=== PATIENT | female | born 1995 | race Hispanic/Latino ===

== ENCOUNTER 2018-06-27 00:11 | Emergency (ER) | payer SELFPAY ==
[2018-06-27 00:28] VITALS: RESP 17
[2018-06-27] MEDS ORDERED: Morphine 4 mg/ml ISec IVP STA (00:55)
[2018-06-27] MEDS ORDERED: Sodium Chloride 0.9% 1,000 ML IV STA (00:55)
--- NOTE | 2018-06-27 00:58 | ED PDOC ---
Arrival/HPI - General Chief Complaint: Abdominal Pain Time Seen by Provider: 06/27/18 00:25 Historian: Patient - History of Present Illness Narrative History of Present Illness (Text): 06/27/18 00:51 22 year old female, with no significant past medical history, presents to the emergency department with lower abdominal pain, for 2 days. Patient informs that pain has become severe today, so she came to the hospital. Patient states she has associated nausea, vomiting, diarrhea, dizziness, and cold sweats. Patient informs her last period at the beginning of this month, but can't recall exact date. Patient states she has used Tylenol, Icy-hot, and warm towels, with no relief. Patient denies any headache, chest pain, shortness of breath, cough, hematochezia, back pain, neck pain, or any other complaint. Time/Duration: 24 hours (progressively worse today), < week (2 days) Symptom Onset: Gradual Symptom Course: Worsening Past Medical History - Provider Review Nursing Documentation Reviewed: Yes - Infectious Disease Hx of Infectious Diseases: None - Cardiac Hx Cardiac Disorders: No - Psychiatric Hx Substance Use: No Family/Social History - Physician Review Nursing Documentation Reviewed: Yes Family/Social History: No Known Family HX Smoking Status: Never Smoked Hx Alcohol Use: No Hx Substance Use: No Allergies/Home Meds Allergies/Adverse Reactions: Allergies ibuprofen Allergy (Verified 06/27/18 00:22) ANAPHYLAXIS naproxen [From Aleve] Allergy (Verified 06/27/18 00:22) ANAPHYLAXIS Review of Systems - Physician Review All systems were reviewed & negative as marked: Yes - Review of Systems Constitutional: Night Sweats Respiratory: absent: SOB, Cough Cardiovascular: absent: Chest Pain Gastrointestinal: Diarrhea, Nausea, Vomiting. absent: Hematochezia Neurological: Dizziness. absent: Headache Physical Exam Vital Signs Reviewed: Yes Vital Signs Temp Pulse Resp BP Pulse Ox 06/27/18 00:27 98.2 F 91 H 17 134/81 98 Temperature: Afebrile Blood Pressure: Normal Pulse: Regular Respiratory Rate: Normal Appearance: Positive for: Well-Appearing, Non-Toxic, Comfortable Pain Distress: None Mental Status: Positive for: Alert and Oriented X 3 - Systems Exam Head: Present: Atraumatic, Normocephalic Pupils: Present: PERRL Extroacular Muscles: Present: EOMI Conjunctiva: Present: Normal Mouth: Present: Moist Mucous Membranes Neck: Present: Normal Range of Motion Respiratory/Chest: Present: Clear to Auscultation, Good Air Exchange. No: Respiratory Distress, Accessory Muscle Use Cardiovascular: Present: Regular Rate and Rhythm, Normal S1, S2. No: Murmurs Abdomen: No: Tenderness, Distention, Peritoneal Signs Back: Present: Normal Inspection Upper Extremity: Present: Normal Inspection. No: Cyanosis, Edema Lower Extremity: Present: Normal Inspection. No: Edema Neurological: Present: Speech Normal Skin: Present: Warm, Dry, Normal Color. No: Rashes Psychiatric: Present: Alert, Oriented x 3, Normal Insight, Normal Concentration Medical Decision Making ED Course and Treatment: 06/27/18 01:02 Impression: 22 year old female presents with lower abdominal pain. Plan: -- CT ABD & Pelvis -- Labs -- Reglan -- Morphine -- Urinalysis -- Reassess and disposition Prior Visits: Notes and results from previous visits were reviewed. Progress Notes: - RAD Interpretation Narrative RAD Interpretations (Text): 06/27/18 04:03 CT SCAN OF THE ABDOMEN AND PELVIS WITH CONTRAST. CLINICAL HISTORY: Abdominal pain. TECHNIQUE: Multiple axial and coronal CT images were obtained through the abdomen and pelvis after administration of intravenous contrast material. COMMENTS: Fluid filled stomach. The liver is of uniform attenuation without mass or defect. There is no intra or extrahepatic biliary ductal dilatation. The spleen is normal. The gallbladder is within normal limits. The pancreas is of normal contour and attenuation characteristics. There is no evidence of adrenal mass. Both kidneys demonstrate prompt and equal nephrograms. The kidneys are normal in size, shape and configuration. There is no evidence of renal or ureteral mass. No renal or ureteral calculi are identified. There is no hydroureter or hydronephrosis. No evidence for appendicitis. There is no bowel wall thickening. No evidence for small or large bowel obstruction. Uncomplicated colonic diverticulosis. There is no evidence of abdominal ascites or lymphadenopathy. There is no evidence of intrinsic or extrinsic bladder mass. There is small amount of free pelvic fluid. Images of the lung bases show no evidence of pleural or parenchymal mass. There are no pleural effusions. The bony structures are free of lytic or blastic lesions. IMPRESSION: Mild gastroparesis. Mild amount of free pelvic fluid, nonspecific. No evidence of acute abdominal or pelvic pathology. Lofter: Radiologist - Scribe Statement The provider has reviewed the documentation as recorded by the Shelton Sutton Provider Scribe Attestation: All medical record entries made by the Shelton were at my direction and personally dictated by me. I have reviewed the chart and agree that the record accurately reflects my personal performance of the history, physical exam, medical decision making, and the department course for this patient. I have also personally directed, reviewed, and agree with the discharge instructions and disposition. Disposition/Present on Arrival - Present on Arrival Any Indicators Present on Arrival: No History of DVT/PE: No History of Uncontrolled Diabetes: No Urinary Catheter: No History of Decub. Ulcer: No History Surgical Site Infection Following: None - Disposition Have Diagnosis and Disposition been Completed?: Yes Diagnosis: Gastroparesis Disposition: HOME/ ROUTINE Disposition Time: 05:06 Patient Plan: Discharge Condition: SERIOUS Discharge Instructions (ExitCare): Gastroparesis (Delayed Gastric Emptying) (DC) Prescriptions: Ondansetron ODT [Zofran ODT] 4 mg PO PRN PRN #6 odt PRN Reason: Nausea/Vomiting Referrals: Jesus Banuelos MD [Staff Provider] - Follow up with primary Rita Loving MD [Medical Doctor] - [place] up [place] [facility] [place] - Follow up with primary Forms: [employer] (Scottish)
[2018-06-27 01:04] LABS: URINE APPEARANCE SL CLOUDY (CLEAR); URINE COLOR YELLOW (YELLOW)
[2018-06-27 01:08] LABS: URINE BILIRUBIN NEGATIVE (NEGATIVE); URINE BLOOD NEGATIVE (NEGATIVE); URINE GLUCOSE (UA) NEGATIVE (NEGATIVE); URINE LEUKOCYTE ESTERASE NEGATIVE Leu/uL (NEGATIVE); URINE PROTEIN TRACE mg/dL (<30 mg/dL); URINE UROBILINOGEN 0.2 E.U./dL (<1 E.U./dL)
[2018-06-27 01:09] LABS: URINE BACTERIA MOD (NEG); URINE RBC 0 - 2 /hpf (0-2)
[2018-06-27 01:22] LABS: BASO # 0.03 K/mm3 (0.0-2.0); BASO % 0.4 % (0.0-3.0); EOS # 0.2 (0.0-0.7); EOS % 1.9 % (1.5-5.0); GRAN # 4.37 (1.4-6.5); GRAN % 55.6 % (50.0-68.0); HEMOGLOBIN 12.2 g/dL (12.0-16.0); LYMPH # 2.7 (1.2-3.4); LYMPH % 34.5 % (22.0-35.0); MEAN CELL VOLUME 92.5 fl (80.0-105.0); MEAN CORPUSCULAR HEMOGLOBIN 31.7 pg (25.0-35.0); MEAN CORPUSCULAR HGB CONC 34.3 g/dl (31.0-37.0); MEAN PLATELET VOLUME 10.5 fl (7.0-11.0); MONO # 0.6 (0.1-0.6); MONO % 7.6 % (1.0-6.0); RBC 3.85 10^6/uL (3.5-6.1); WHITE BLOOD COUNT 7.9 10^3/uL (4.5-11.0)
[2018-06-27 01:32] LABS: ALB/GLOB RATIO 1.3 (1.1-1.8); ALBUMIN 3.8 g/dL (3.0-4.8); ALT/SGPT 30 U/L (7-56); AST/SGOT 24 U/L (14-36); BLOOD UREA NITROGEN 17 mg/dL (7-21); CALCIUM 8.7 mg/dL (8.4-10.5); GFR NON-AFRICAN AMERICAN > 60; LIPASE 64 U/L (23-300)
[2018-06-27] MEDS ORDERED: Iohexol 350 MG/100 ML VIAL ONE (01:55)
[2018-06-27 05:24] VITALS: BP 133/68; PULSE 88; TEMP 98.3; O2SAT 98
--- NOTE | 2018-06-27 10:34 | CT ---
Date of service: 06/27/2018 PROCEDURE: CT Abdomen and Pelvis with contrast HISTORY: abdominal pain COMPARISON: None. TECHNIQUE: Contrast dose: 100 cc of Omni 350 Radiation dose: Total exam DLP = 897.51 mGy-cm. This CT exam was performed using one or more of the following dose reduction techniques: Automated exposure control, adjustment of the mA and/or kV according to patient size, and/or use of iterative reconstruction technique. FINDINGS: LOWER THORAX: The stomach is filled with fluid and mildly distended. LIVER: Unremarkable. No gross lesion or ductal dilatation. GALLBLADDER AND BILE DUCTS: Unremarkable. PANCREAS: Unremarkable. No gross lesion or ductal dilatation. SPLEEN: Unremarkable. ADRENALS: Unremarkable. No mass. KIDNEYS AND URETERS: Unremarkable. No hydronephrosis. No solid mass. VASCULATURE: Unremarkable. No aortic aneurysm. No aortic atherosclerotic calcification or mural plaque present. BOWEL: Unremarkable. No obstruction. No gross mural thickening. APPENDIX: Normal appendix. PERITONEUM: There is a small amount of free fluid in the pelvis LYMPH NODES: Unremarkable. No enlarged lymph nodes. BLADDER: Unremarkable. REPRODUCTIVE: Unremarkable. BONES: No acute fracture. OTHER FINDINGS: The report concurs with the preliminary [facility] report IMPRESSION: No acute intra-abdominal findings
== END 2018-06-27 05:29 | disposition home or self-care (01) ==
LOC: ED 00:11
DX: K31.84 Gastroparesis (principal)
CPT/HCPCS: 74177; 80053; 81001; 83690; 84702; 85025; 87086; 96374; 96375; 99284; J2270; J2765; J7030; Q9967

== ENCOUNTER 2018-10-08 23:43 | Emergency (ER) | payer SELFPAY ==
[2018-10-08 23:57] VITALS: RESP 18
--- NOTE | 2018-10-09 00:28 | ED PDOC ---
Arrival/HPI - General Chief Complaint: Abdominal Pain Time Seen by Provider: 10/09/18 00:00 Historian: Patient - History of Present Illness Narrative History of Present Illness (Text): 10/09/18 00:26 Artemio Hagen is a 22 year old female, with no significant past medical history, who presents to the Emergency department complaining of abdominal pain. Patient states she has been experiencing intermittent abdominal pain for the past 2 weeks with some diarrhea. Patient denies any fever, chills, chest pain, shortness of breath, urinary symptoms, back pain, neck pain, headache, dizziness, or any other complaints. Symptom Onset: Gradual Symptom Course: Unchanged Activities at Onset: Light Context: Home Past Medical History - Provider Review Nursing Documentation Reviewed: Yes - Infectious Disease Hx of Infectious Diseases: None - Reproductive Currently : No - Cardiac Hx Cardiac Disorders: No - Psychiatric Hx Substance Use: No Family/Social History - Physician Review Nursing Documentation Reviewed: Yes Family/Social History: Unknown Family HX Smoking Status: Never Smoked Hx Alcohol Use: No Hx Substance Use: No Allergies/Home Meds Allergies/Adverse Reactions: Allergies ibuprofen Allergy (Verified 06/27/18 00:22) ANAPHYLAXIS metoclopramide [From Reglan] Allergy (Verified 10/08/18 23:59) ITCHING naproxen [From Aleve] Allergy (Verified 06/27/18 00:22) ANAPHYLAXIS Review of Systems - Physician Review All systems were reviewed & negative as marked: Yes - Review of Systems Constitutional: Normal. absent: Fevers Eyes: Normal ENT: Normal Respiratory: Normal. absent: SOB, Cough Cardiovascular: Normal. absent: Chest Pain Gastrointestinal: Abdominal Pain, Diarrhea. absent: Vomiting Genitourinary Female: Normal. absent: Dysuria, Frequency, Hematuria, Urine Output Changes Musculoskeletal: Normal. absent: Back Pain, Neck Pain Skin: Normal. absent: Rash Neurological: Normal. absent: Headache, Dizziness Endocrine: Normal Hemo/Lymphatic: Normal Psychiatric: Normal Physical Exam Vital Signs Reviewed: Yes Vital Signs Temp Pulse Resp BP Pulse Ox 10/08/18 23:56 98.0 F 84 18 106/58 L 98 Temperature: Afebrile Blood Pressure: Normal Pulse: Regular Respiratory Rate: Normal Appearance: Positive for: Well-Appearing, Non-Toxic, Comfortable Pain Distress: None Mental Status: Positive for: Alert and Oriented X 3 - Systems Exam Head: Present: Atraumatic, Normocephalic Pupils: Present: PERRL Extroacular Muscles: Present: EOMI Conjunctiva: Present: Normal Mouth: Present: Moist Mucous Membranes Neck: Present: Normal Range of Motion Respiratory/Chest: Present: Clear to Auscultation, Good Air Exchange. No: Respiratory Distress, Accessory Muscle Use Cardiovascular: Present: Regular Rate and Rhythm, Normal S1, S2. No: Murmurs Abdomen: Present: Tenderness (mild mid/left sided), Normal Bowel Sounds. No: Distention, Peritoneal Signs, Rebound, Guarding, McBurney's Point Tender, Rovsing's Sign Present, Hernias Back: Present: Normal Inspection Upper Extremity: Present: Normal Inspection. No: Cyanosis, Edema Lower Extremity: Present: Normal Inspection. No: Edema Neurological: Present: GCS=15, CN II-XII Intact, Speech Normal, Motor Func Grossly Intact, Normal Sensory Function Skin: Present: Warm, Dry, Normal Color. No: Rashes Psychiatric: Present: Alert, Oriented x 3, Normal Insight, Normal Concentration Medical Decision Making ED Course and Treatment: 10/09/18 00:26 Impression: 22 year old female complaining of mid/left sided abdominal pain and diarrhea Plan: -- CT Abdomen and Pelvis with IV contrast -- Labs, lipase -- Urinalysis -- IV fluids -- Morphine -- Reassess and disposition Prior Visits: Notes and results from previous visits were reviewed. Progress Notes: 10/09/18 03:00 CT Abdomen and Pelvis: Colonic diverticulosis. Mild apparent thickening of the sigmoid colon. Mild amount of free pelvic fluid. Moderate amount of fecal residue is noted in the large bowels. Moderate amount of fecal residue is noted in the terminal ileum. The liver is of uniform attenuation without mass or defect. There is no intra or extrahepatic biliary ductal dilatation. The spleen is normal. The gallbladder is within normal limits. The pancreas is of normal contour and attenuation characteristics. There is no evidence of adrenal mass. Both kidneys demonstrate prompt and equal nephrograms. The kidneys are normal in size, shape and configuration. There is no evidence of renal or ureteral mass. No renal or ureteral calculi are identified. There is no hydroureter or hydronephrosis. No evidence for appendicitis. There is no bowel wall thickening. No evidence for small or large bowel obstruction. There is no evidence of intrinsic or extrinsic bladder mass. Images of the lung bases show no evidence of pleural or parenchymal mass. There are no pleural effusions. The bony structures are free of lytic or blastic lesions. IMPRESSION: Colonic diverticulosis. Mild apparent thickening of the sigmoid colon. Underdistention, spasm versus mild colitis. Mild amount of free pelvic fluid. Moderate amount of fecal residue is noted in the large bowels. Moderate amount of fecal residue is noted in the terminal ileum. Electronically signed on Oct 09, 2018 2:54:43 AM EST by: Dorcas Mckeon M.D., Certified by ABR, MSK, Neuroradiology - Scribe Statement The provider has reviewed the documentation as recorded by the Scribe Charity Crowe Provider Scribe Attestation: All medical record entries made by the Scribe were at my direction and personally dictated by me. I have reviewed the chart and agree that the record accurately reflects my personal performance of the history, physical exam, medical decision making, and the department course for this patient. I have also personally directed, reviewed, and agree with the discharge instructions and disposition. Disposition/Present on Arrival - Present on Arrival Any Indicators Present on Arrival: No History of DVT/PE: No History of Uncontrolled Diabetes: No Urinary Catheter: No History of Decub. Ulcer: No History Surgical Site Infection Following: None - Disposition Have Diagnosis and Disposition been Completed?: Yes Diagnosis: Gastroenteritis Disposition: HOME/ ROUTINE Disposition Time: 03:44 Patient Plan: Discharge Condition: GOOD Discharge Instructions (ExitCare): Gastroenteritis (ED) Additional Instructions: Drink plenty of liquids/take meds as prescribed/follow up at [facility] this week Prescriptions: Phenobarb/Hyoscy/Atropine/Scop [ Tablet] 16.2 mg PO Q6 PRN #12 tablet PRN Reason: Dyspepsia Referrals: [facility] [Outside] - Follow up with primary Rita Loving MD [Medical Doctor] - Follow up with primary [facility] [Outside] - Follow up with primary Forms: [employer] ([place]an)
[2018-10-09] MEDS ORDERED: Sodium Chloride 0.9% 1,000 ML IV STA (00:29)
[2018-10-09] MEDS ORDERED: Morphine 2 mg/ml ISec IVP STA ×2 (00:29→02:07)
[2018-10-09 01:19] LABS: HEMOGLOBIN 12.9 g/dL (12.0-16.0); MEAN CELL VOLUME 91.3 fl (80.0-105.0); MEAN CORPUSCULAR HEMOGLOBIN 31.3 pg (25.0-35.0); MEAN CORPUSCULAR HGB CONC 34.3 g/dl (31.0-37.0); MEAN PLATELET VOLUME 10.8 fl (7.0-11.0); RBC 4.12 10^6/uL (3.5-6.1); RED CELL DISTRIBUTION WIDTH 13.3 % (11.5-14.5); WHITE BLOOD COUNT 8.1 10^3/uL (4.5-11.0)
[2018-10-09 01:20] LABS: URINE BILIRUBIN NEGATIVE (NEGATIVE); URINE BLOOD NEGATIVE (NEGATIVE); URINE GLUCOSE (UA) NEGATIVE (NEGATIVE); URINE LEUKOCYTE ESTERASE NEGATIVE Leu/uL (NEGATIVE); URINE PROTEIN NEGATIVE mg/dL (<30 mg/dL); URINE UROBILINOGEN 0.2 E.U./dL (<1 E.U./dL)
[2018-10-09 01:23] LABS: ALB/GLOB RATIO 1.4 (1.1-1.8); ALBUMIN 4.4 g/dL (3.0-4.8); ALT/SGPT 27 U/L (7-56); AST/SGOT 35 U/L (14-36); BLOOD UREA NITROGEN 14 mg/dL (7-21); CALCIUM 9.7 mg/dL (8.4-10.5); GFR NON-AFRICAN AMERICAN > 60; LIPASE 69 U/L (23-300)
[2018-10-09 01:25] LABS: URINE APPEARANCE CLEAR (CLEAR); URINE COLOR YELLOW (YELLOW)
[2018-10-09] MEDS ORDERED: Iohexol 350 MG/100 ML VIAL ONE (01:44)
[2018-10-09 03:59] VITALS: BP 129/76; PULSE 79; TEMP 98.1; O2SAT 98
--- NOTE | 2018-10-09 09:36 | CT ---
Date of service: 10/09/2018 PROCEDURE: CT Abdomen and Pelvis with contrast HISTORY: left lower abdominal pain COMPARISON: None. TECHNIQUE: Contrast dose: Radiation dose: Total exam DLP = 625.22 mGy-cm. This CT exam was performed using one or more of the following dose reduction techniques: Automated exposure control, adjustment of the mA and/or kV according to patient size, and/or use of iterative reconstruction technique. FINDINGS: LOWER THORAX: Unremarkable. LIVER: Unremarkable. No gross lesion or ductal dilatation. GALLBLADDER AND BILE DUCTS: Unremarkable. PANCREAS: Unremarkable. No gross lesion or ductal dilatation. SPLEEN: Unremarkable. ADRENALS: Unremarkable. No mass. KIDNEYS AND URETERS: Unremarkable. No hydronephrosis. No solid mass. VASCULATURE: Unremarkable. No aortic aneurysm. No aortic atherosclerotic calcification or mural plaque present. BOWEL: Unremarkable. No obstruction. No gross mural thickening. APPENDIX: Normal appendix. PERITONEUM: Unremarkable. No free fluid. No free air. LYMPH NODES: Unremarkable. No enlarged lymph nodes. BLADDER: Unremarkable. REPRODUCTIVE: Unremarkable. BONES: No acute fracture. OTHER FINDINGS: The report concurs with the preliminary [facility] report IMPRESSION: Unremarkable contrast enhanced CT of the abdomen and pelvis.
== END 2018-10-09 03:58 | disposition home or self-care (01) ==
LOC: ED 23:43
DX: K52.9 Noninfective gastroenteritis and colitis, unspecified (principal)
CPT/HCPCS: 74177; 80053; 81003; 81025; 83690; 85027; 96374; 96376; 99284; J2270; J7030; Q9967

== ENCOUNTER 2018-10-25 02:40 | Emergency (ER) | payer SELFPAY ==
--- NOTE | 2018-10-25 03:00 | ED PDOC ---
Arrival/HPI - General Chief Complaint: Abdominal Pain Time Seen by Provider: 10/25/18 02:54 Historian: Patient - History of Present Illness Narrative History of Present Illness (Text): 10/25/18 02:59 Artemio Hagen is a 22 year old female, with no significant past medical history, who presents to the Emergency department complaining of abdominal pain. Patient states she has been experiencing intermittent lower abdominal pain for the past week with urinary frequency. Patient was seen in the Emergency department on 10/08/2017, was treated for gastroenteritis, and discharged home. Patient denies any fever, chills, chest pain, shortness of breath, back pain, neck pain, headache, dizziness, or any other complaints. Symptom Onset: Gradual Symptom Course: Unchanged Activities at Onset: Light Context: Home Past Medical History - Provider Review Nursing Documentation Reviewed: Yes - Infectious Disease Hx of Infectious Diseases: None - Cardiac Hx Cardiac Disorders: No - Psychiatric Hx Substance Use: No Family/Social History - Physician Review Nursing Documentation Reviewed: Yes Family/Social History: Unknown Family HX Smoking Status: Never Smoked Hx Alcohol Use: No Hx Substance Use: No Allergies/Home Meds Allergies/Adverse Reactions: Allergies ibuprofen Allergy (Verified 06/27/18 00:22) ANAPHYLAXIS metoclopramide [From Reglan] Allergy (Verified 10/08/18 23:59) ITCHING naproxen [From Aleve] Allergy (Verified 06/27/18 00:22) ANAPHYLAXIS Review of Systems - Physician Review All systems were reviewed & negative as marked: Yes - Review of Systems Constitutional: Normal. absent: Fevers Eyes: Normal ENT: Normal Respiratory: Normal. absent: SOB, Cough Cardiovascular: Normal. absent: Chest Pain Gastrointestinal: Abdominal Pain Genitourinary Female: Frequency Musculoskeletal: Normal. absent: Back Pain, Neck Pain Skin: Normal. absent: Rash Neurological: Normal. absent: Headache, Dizziness Endocrine: Normal Hemo/Lymphatic: Normal Psychiatric: Normal Physical Exam Vital Signs Reviewed: Yes Temperature: Afebrile Blood Pressure: Normal Pulse: Regular Respiratory Rate: Normal Appearance: Positive for: Well-Appearing, Non-Toxic, Comfortable Pain Distress: None Mental Status: Positive for: Alert and Oriented X 3 - Systems Exam Head: Present: Atraumatic, Normocephalic Pupils: Present: PERRL Extroacular Muscles: Present: EOMI Conjunctiva: Present: Normal Mouth: Present: Moist Mucous Membranes Neck: Present: Normal Range of Motion Respiratory/Chest: Present: Clear to Auscultation, Good Air Exchange. No: Respiratory Distress, Accessory Muscle Use Cardiovascular: Present: Regular Rate and Rhythm, Normal S1, S2. No: Murmurs Abdomen: Present: Tenderness (LLQ tenderness). No: Distention, Peritoneal Signs Back: Present: Normal Inspection Upper Extremity: Present: Normal Inspection. No: Cyanosis, Edema Lower Extremity: Present: Normal Inspection. No: Edema Neurological: Present: GCS=15, CN II-XII Intact, Speech Normal Skin: Present: Warm, Dry, Normal Color. No: Rashes Psychiatric: Present: Alert, Oriented x 3, Normal Insight, Normal Concentration Medical Decision Making ED Course and Treatment: 10/25/18 02:59 Impression: 23 year old female complaining of lower abdominal pain and some urinary frequency. Plan: -- Labs, lipase -- Urinalysis -- Reassess and disposition Prior Visits: Notes and results from previous visits were reviewed. Progress Notes: 10/25/18 05:30 On re-evaluation, patient feels better and is in no acute distress. I have di scussed the results and plan with the patient, who expresses understanding. Patient in agreement with plan to be discharged home. Patient is stable for discharge. Patient was instructed to follow up with physician or return if symptoms worsen or new concerning symptoms arise. Re-evaluation Time: 05:30 Reassessment Condition: Re-examined, Improved - Scribe Statement The provider has reviewed the documentation as recorded by the Shelton Crowe Provider Scribe Attestation: All medical record entries made by the Shelton were at my direction and personally dictated by me. I have reviewed the chart and agree that the record accurately reflects my personal performance of the history, physical exam, medical decision making, and the department course for this patient. I have also personally directed, reviewed, and agree with the discharge instructions and disposition. Disposition/Present on Arrival - Present on Arrival Any Indicators Present on Arrival: No History of DVT/PE: No History of Uncontrolled Diabetes: No Urinary Catheter: No History of Decub. Ulcer: No History Surgical Site Infection Following: None - Disposition Have Diagnosis and Disposition been Completed?: Yes Diagnosis: Abdominal pain Disposition: HOME/ ROUTINE Disposition Time: 05:30 Condition: IMPROVED Discharge Instructions (ExitCare): Acute Abdomen (Belly Pain) Additional Instructions: follow up with dr loving as soon as possible Referrals: Rita Loving MD [Medical Doctor] - Follow up with primary Forms: [employer] (Faroese)
[2018-10-25 03:31] LABS: BASO # 0.04 K/mm3 (0.0-2.0); BASO % 0.5 % (0.0-3.0); EOS # 0.1 (0.0-0.7); EOS % 1.5 % (1.5-5.0); LYMPH # 2.6 (1.2-3.4); LYMPH % 32.1 % (22.0-35.0); MEAN CELL VOLUME 92.8 fl (80.0-105.0); MEAN CORPUSCULAR HEMOGLOBIN 30.8 pg (25.0-35.0); MEAN CORPUSCULAR HGB CONC 33.2 g/dl (31.0-37.0); MEAN PLATELET VOLUME 10.5 fl (7.0-11.0); MONO # 0.6 (0.1-0.6); MONO % 7.8 % (1.0-6.0); RBC 3.89 10^6/uL (3.5-6.1); RED CELL DISTRIBUTION WIDTH 13.8 % (11.5-14.5); WHITE BLOOD COUNT 8.1 10^3/uL (4.5-11.0)
[2018-10-25 03:58] LABS: URINE APPEARANCE CLEAR (CLEAR); URINE BILIRUBIN NEGATIVE (NEGATIVE); URINE BLOOD NEGATIVE (NEGATIVE); URINE COLOR YELLOW (YELLOW); URINE GLUCOSE (UA) NEGATIVE (NEGATIVE); URINE LEUKOCYTE ESTERASE NEGATIVE Leu/uL (NEGATIVE); URINE PROTEIN NEGATIVE mg/dL (<30 mg/dL); URINE UROBILINOGEN 0.2 E.U./dL (<1 E.U./dL)
[2018-10-25 05:11] LABS: ALB/GLOB RATIO 1.3 (1.1-1.8); ALBUMIN 3.8 g/dL (3.0-4.8); ALT/SGPT 35 U/L (7-56); AST/SGOT 23 U/L (14-36); BLOOD UREA NITROGEN 13 mg/dL (7-21); CALCIUM 8.8 mg/dL (8.4-10.5); GFR NON-AFRICAN AMERICAN > 60; LIPASE 54 U/L (23-300)
[2018-10-25] MEDS ORDERED: Morphine 2 mg/ml ISec IVP STA (05:20)
[2018-10-25 05:36] VITALS: BP 125/82; PULSE 82; RESP 17; TEMP 98.2; O2SAT 98
== END 2018-10-25 05:36 | disposition home or self-care (01) ==
LOC: ED 02:40
DX: R10.30 Lower abdominal pain, unspecified (principal)
CPT/HCPCS: 80053; 81003; 81025; 83690; 85025; 96374; 99283; J2270

== ENCOUNTER 2018-11-03 01:11 | Observation (INO) | payer SELFPAY ==
[2018-11-03 01:18] VITALS: BMI 26.4
[2018-11-03 01:24] VITALS: RESP 18
[2018-11-03] MEDS ORDERED: Sodium Chloride 0.9% 1,000 ML IV SCH (02:00)
[2018-11-03] MEDS ORDERED: Iodixanol 320 MG/ML 100 ML BOTTLE IV ONE (02:02)
--- NOTE | 2018-11-03 02:05 | ED PDOC ---
Arrival/HPI - General Chief Complaint: Upper Extremity Problem/Injury Time Seen by Provider: 11/03/18 01:16 Historian: Patient - History of Present Illness Narrative History of Present Illness (Text): 11/03/18 01:55 23 year old female, with no significant past medical history, presents to the emergency department with right side weakness and pain, since 12:00pm today. This is the last time well. Patient states she was in school when pain began. Patient informs of burning pain to the right side of her back. Patient also informs of pain from her neck to her elbow on her right arm. Patient states she has never had this pain before. Patient denies any fevers, chills, headache, dizziness, chest pain, shortness of breath, cough, abdominal pain, nausea, vomiting, diarrhea, or any other complaint. Time/Duration: Other (14 hours) Symptom Onset: Gradual Symptom Course: Unchanged Quality: Burning Activities at Onset: Light Context: School Past Medical History - Provider Review Nursing Documentation Reviewed: Yes - Infectious Disease Hx of Infectious Diseases: None - Cardiac Hx Cardiac Disorders: No - Psychiatric Hx Substance Use: No Family/Social History - Physician Review Nursing Documentation Reviewed: Yes Family/Social History: No Known Family HX Smoking Status: Never Smoked Hx Alcohol Use: No Hx Substance Use: No Allergies/Home Meds Allergies/Adverse Reactions: Allergies gabapentin Allergy (Verified 11/03/18 01:21) ANAPHYLAXIS ibuprofen Allergy (Verified 11/03/18 01:21) ANAPHYLAXIS metoclopramide [From Reglan] Allergy (Verified 11/03/18 01:21) ITCHING naproxen [From Aleve] Allergy (Verified 11/03/18 01:21) ANAPHYLAXIS Home Medications: Home Meds Medication Instructions Recorded Confirmed No Known Home Med 11/03/18 11/03/18 Review of Systems - Physician Review All systems were reviewed & negative as marked: Yes - Review of Systems Respiratory: absent: SOB Neurological: absent: Dizziness Physical Exam - Physical Exam Narrative Physical Exam (Text): 11/03/18 02:05 Constitutional: No acute distress. Head: Normocephalic. Atraumatic. Eyes: PERRL. ENT: Moist mucous membranes. Neck: Supple. Cardiovascular: Regular rate. Chest: No tenderness. Respiratory: Clear to auscultation bilaterally. GI: Soft. Nontender. Nondistended. Back: No CVA tenderness. Musculoskeletal: No tenderness or swelling of extremities. Skin: No rash. Neurologic: Alert. Sensation to light touch subjectively decreased in right leg and right arm. Motor 4+/5 right leg and right arm. Vital Signs Reviewed: Yes Vital Signs Temp Pulse Resp BP Pulse Ox 11/03/18 01:22 97.8 F 82 18 108/70 97 Temperature: Afebrile Blood Pressure: Normal Pulse: Regular Respiratory Rate: Normal Appearance: Positive for: Well-Appearing, Non-Toxic, Comfortable Pain Distress: None Mental Status: Positive for: Alert and Oriented X 3 Medical Decision Making ED Course and Treatment: 11/03/18 02:08 Impression: 23 year old female presents with right sided numbness and pain Plan: -- CT Head -- CTA Head/neck -- EKG -- CMP, A1C, Lipid, Trop -- CBC, Platelets -- Code Stroke Protocol -- Reassess and disposition Prior Visits: Notes and results from previous visits were reviewed. Progress Notes: 11/03/18 01:54 Code stroke activated 11/03/18 02:54 CT HEAD W/O (CODE STROKE) CT SCAN OF THE BRAIN WITHOUT IV CONTRAST CLINICAL INDICATION: Stroke. TECHNIQUE: Axial images of the brain obtained without IV contrast administration. Normal size of the ventricles and extra-axial spaces for the patient's age. Normal white matter tracts of the supratentorial brain. Normal basal ganglia and thalami. Normal brainstem. Normal cerebellum. There is no demonstrated extra-axial, intraparenchymal, or intraventricular hemorrhage. There are no findings of an acute ischemic infarction. Normal calvarium. There is no demonstrated fracture. Normal soft tissue structures. Normal visualized paranasal sinuses. IMPRESSION: Normal unenhanced CT scan of the brain. 11/03/18 02:55 Chest X-ray reviewed by me, shows: No acute disease. 11/03/18 03:04 CT angiography of the head. Indication: Right-sided numbness/weakness. Technique: Axial CT angiographic images. Reformatted coronal and sagittal images. Normal bilateral petrous carotid arteries. Normal right cavernous carotid artery with a normal supraclinoid bifurcation. Normal left cavernous carotid artery with a normal supraclinoid bifurcation. Normal right A1 segments of the anterior cerebral artery. Normal left A1 segments of the anterior cerebral artery. Normal intact anterior communicating artery (ACOM). Normal bilateral A2 segments of the anterior cerebral arteries. Normal right M1 and M2 segments of the middle cerebral arteries, with a normal M1 bifurcation. Normal left M1 and M2 segments of the middle cerebral arteries, with a normal M1 bifurcation. Normal right posterior communicating artery (PCOM). Normal left posterior communicating artery (PCOM). Normal bilateral vertebral arteries. Normal basilar artery with a normal basilar bifurcation. The visualized bilateral superior cerebellar (SCA) arteries are normal. Normal bilateral P1, P2 and visualized P3 segments of the posterior cerebral arteries. There is no demonstrated aneurysm of the [place]. There is no major vessel occlusion or hemodynamically significant stenosis. There is no demonstrated abnormality of the visualized brain. IMPRESSION: Normal CTA of the head. CT angiography of the neck. Technique: Axial CT angiographic images. Reformatted coronal and sagittal images. Findings: RIGHT CAROTID ARTERIES: Normal right common carotid artery (CCA). Normal right common carotid bulb. Normal origin of the right internal carotid (ICA) artery without a hemodynamically significant stenosis. Normal visualized cervical portion of the right internal carotid artery. Normal origin of the right external carotid artery (ECA). LEFT CAROTID ARTERIES: Normal left common carotid artery (CCA). Normal left common carotid bulb. Normal origin of the left internal carotid (ICA) artery without a hemodynamically significant stenosis. Normal visualized cervical portion of the left internal carotid artery. Normal origin of the left external carotid artery (ECA). VERTEBRAL ARTERIES: Normal antegrade flow within the bilateral vertebral artery without a hemodynamically significant stenosis. IMPRESSION: Normal bilateral cervical carotid and vertebral arteries. - RAD Interpretation Radiology Orders: 11/03/18 01:53 CTA HEAD/NECK CODE STROKE [CT] Stat HEAD W/O (CODE STROKE) [CT] Stat CHEST PORTABLE [RAD] Stat NIHSS Scale ([place]) Time Performed: 01:16 - How Severe is the Stoke Baseline Level of Consciousness: 0=Alert LOC to Questions: 0=Both comments correct LOC to commands: 0=Obeys both correctly Best Gaze: 0=Normal Visual: 0=No visual loss Facial: 0=Normal Motor Arm - Left: 0=No drift Motor Arm - Right: 1=Drift noted before 10 sec Motor Leg - Left: 0=No drift Motor Leg - Right: 1=Drift before 5 sec Limb Ataxia: 0=Absent Sensory: 1=Mild to moderate loss Best Language: 0=No aphasia Dysarthia: 0=Normal articulation Extinction & Inattention (Neglect): 0=Normal, no object Score: 3 Risk Level: Minor Stroke Risk rTPA Inclusion/Exclusion - Refusal of Treatment Patient Refused Treatment: No - Inclusion Criteria for Altepase Patient is 18 years or Older: Yes The Clinical Diagnosis of Ischemic Stroke That is Causing a Potentially Disabling Neurological Deficit: Yes Time of Onset is Well Established to be Less Than 270 Minute Before Treatment Would Begin: No Risk/Benefit Discussed With Patient/Family Member Present: Yes - Scribe Statement The provider has reviewed the documentation as recorded by the Shaniaibahmet Sutton Provider Scribe Attestation: All medical record entries made by the Scribe were at my direction and personally dictated by me. I have reviewed the chart and agree that the record accurately reflects my personal performance of the history, physical exam, medical decision making, and the department course for this patient. I have also personally directed, reviewed, and agree with the discharge instructions and disposition. Disposition/Present on Arrival - Present on Arrival Any Indicators Present on Arrival: No History of DVT/PE: No History of Uncontrolled Diabetes: No Urinary Catheter: No History of Decub. Ulcer: No History Surgical Site Infection Following: None - Disposition Have Diagnosis and Disposition been Completed?: Yes Diagnosis: Hemiparesthesia Disposition: HOSPITALIZED Disposition Time: 02:54 Patient Plan: Admission, Telemetry Condition: FAIR Forms: [employer] (Frisian)
[2018-11-03 02:46] LABS: BASO # 0.03 K/mm3 (0.0-2.0); BASO % 0.5 % (0.0-3.0); EOS # 0.1 (0.0-0.7); EOS % 2.1 % (1.5-5.0); HEMOGLOBIN 11.4 g/dL (12.0-16.0); LYMPH # 2.5 (1.2-3.4); LYMPH % 37.7 % (22.0-35.0); MEAN CELL VOLUME 93.8 fl (80.0-105.0); MEAN PLATELET VOLUME 10.6 fl (7.0-11.0); MONO # 0.5 (0.1-0.6); MONO % 7.4 % (1.0-6.0); RBC 3.68 10^6/uL (3.5-6.1); RED CELL DISTRIBUTION WIDTH 13.6 % (11.5-14.5); WHITE BLOOD COUNT 6.5 10^3/uL (4.5-11.0)
[2018-11-03 02:50] LABS: INR 1.07; PARTIAL THROMBOPLASTIN TIME 34.4 Seconds (26.9-38.3); PROTHROMBIN TIME 11.9 SECONDS (9.4-12.5)
[2018-11-03 03:02] LABS: ALB/GLOB RATIO 1.4 (1.1-1.8); ALBUMIN 3.5 g/dL (3.0-4.8); ALT/SGPT 18 U/L (7-56); AST/SGOT 21 U/L (14-36); BLOOD UREA NITROGEN 17 mg/dL (7-21); GFR NON-AFRICAN AMERICAN > 60; HDL CHOLESTEROL 38 mg/dL (29-60)
[2018-11-03 03:05] LABS: LDL CHOLESTEROL 68 mg/dL (0-129)
[2018-11-03 03:07] LABS: TROPONIN I < 0.01 ng/mL
--- NOTE | 2018-11-03 03:21 | CP.PCM.HP ---
<Mario Hay - Last Filed: 11/03/18 04:32> History of Present Illness - History of Present Illness History of Present Illness: Mario Hay, PGY1 Medicine H&P for Dr. Zimmerman cc: "right sided weakness" Patient is a 23 year old female, with no significant past medical history, who presents to the emergency department with right side weakness that started at 12pm while she was in school. Patient was a code stroke in the ED. Medical team evaluated patient in the ED. Patient said that she still has some weakness since arriving to the ED. She has not had an episode like this in the past. She denies any medical history and does not take any medication. No prior history of stroke or seizure. She did not have any tongue biting or urinary/bowel incontinence during the incident. She is currently offering no complaints besides right upper and lower extremity weakness. She denies cp, sob, n/v/d, bowel/bladder changes, headache, fever, chills, lightheadedness, dizziness. A full 12 point ROS was conducted and unremarkable except as stated above. PMD: Dr. Urias PMHx:denies PSHx: denies Meds: none Allergies: gabapentin, ibuprofen/naproxen, reglan SocialHx: smokes a 2-3 cigarettes a day x2 years. Denies EtOH use. Denies illicit drug use. FamHx: non-contributory Present on Admission - Present on Admission Any Indicators Present on Admission: No Review of Systems - Review of Systems All systems: reviewed and no additional remarkable complaints except (as per HPI) Past Patient History - Infectious Disease Hx of Infectious Diseases: None - Past Social History Smoking Status: Never Smoked - CARDIAC Hx Cardiac Disorders: No - PSYCHIATRIC Hx Substance Use: No Meds Allergies/Adverse Reactions: Allergies Allergy/AdvReac Type Severity Reaction Status Date / Time gabapentin Allergy ANAPHYLAXIS Verified 11/03/18 01:21 ibuprofen Allergy ANAPHYLAXIS Verified 11/03/18 01:21 metoclopramide [From Reglan] Allergy ITCHING Verified 11/03/18 01:21 naproxen [From Aleve] Allergy ANAPHYLAXIS Verified 11/03/18 01:21 Physical Exam - Constitutional Appears: No Acute Distress - Head Exam Head Exam: ATRAUMATIC, NORMAL INSPECTION, NORMOCEPHALIC - Eye Exam Eye Exam: EOMI, Normal appearance, PERRL Pupil Exam: NORMAL ACCOMODATION - ENT Exam ENT Exam: Mucous Membranes Moist - Neck Exam Neck exam: Positive for: Normal Inspection. Negative for: Tenderness, Thyromegaly Additional comments: No bruit. - Respiratory Exam Respiratory Exam: Clear to Auscultation Bilateral, NORMAL BREATHING PATTERN. absent: Accessory Muscle Use, Chest Wall Tenderness, Rales, Rhonchi, Wheezes, Stridor - Cardiovascular Exam Cardiovascular Exam: +S1, +S2 - GI/Abdominal Exam GI & Abdominal Exam: Normal Bowel Sounds, Soft. absent: Tenderness - Extremities Exam Extremities exam: Positive for: normal inspection, pedal pulses present. Negative for: tenderness - Back Exam Back exam: NORMAL INSPECTION - Neurological Exam Neurological exam: Alert, CN II-XII Intact, Oriented x3 Additional comments: 5/5 motor strength in all extremities. Sensation is in tact to all upper/lower extremities. No evidence of facial droop; sensation to face intact and normal. - Psychiatric Exam Psychiatric exam: Normal Affect, Normal Mood - Skin Skin Exam: Dry, Intact, Normal Color, Warm Results - Vital Signs Recent Vital Signs: Last Vital Signs Temp 97.8 F 11/03/18 01:22 Pulse 82 11/03/18 01:22 Resp 18 11/03/18 01:22 BP 108/70 11/03/18 01:22 Pulse Ox 97 11/03/18 01:22 - Labs Result Diagrams: 11/03/18 02:30 11/03/18 02:30 Labs: Laboratory Results - last 24 hr 11/03/18 11/03/18 11/03/18 01:55 02:30 02:30 WBC 6.5 RBC 3.68 Hgb 11.4 L Hct 34.5 L MCV 93.8 MCH 31.0 MCHC 33.0 RDW 13.6 Plt Count 220 MPV 10.6 Neut % (Auto) 52.3 Lymph % (Auto) 37.7 H Cloud % (Auto) 7.4 H Eos % (Auto) 2.1 Baso % (Auto) 0.5 Lymph # (Auto) 2.5 Cloud # (Auto) 0.5 Eos # (Auto) 0.1 Baso # (Auto) 0.03 Absolute Neuts (auto) 3.42 PT 11.9 INR 1.07 APTT 34.4 Sodium Potassium Chloride Carbon Dioxide Anion Gap BUN Creatinine Est GFR ( Amer) Est GFR (Non-Af Amer) POC Glucose (mg/dL) 123 H Random Glucose Calcium Total Bilirubin AST ALT Alkaline Phosphatase Troponin I Total Protein Albumin Globulin Albumin/Globulin Ratio Triglycerides Cholesterol LDL Cholesterol Direct HDL Cholesterol BBK History Checked 11/03/18 11/03/18 02:30 02:30 WBC RBC Hgb Hct MCV MCH MCHC RDW Plt Count MPV Neut % (Auto) Lymph % (Auto) Cloud % (Auto) Eos % (Auto) Baso % (Auto) Lymph # (Auto) Cloud # (Auto) Eos # (Auto) Baso # (Auto) Absolute Neuts (auto) PT INR APTT Sodium 137 Potassium 3.7 Chloride 106 Carbon Dioxide 27 Anion Gap 8 L BUN 17 Creatinine 0.7 Est GFR ( Amer) > 60 Est GFR (Non-Af Amer) > 60 POC Glucose (mg/dL) Random Glucose 106 Calcium 9.0 Total Bilirubin 0.3 AST 21 ALT 18 Alkaline Phosphatase 57 Troponin I < 0.01 Total Protein 6.0 Albumin 3.5 Globulin 2.5 Albumin/Globulin Ratio 1.4 Triglycerides 81 Cholesterol 127 L LDL Cholesterol Direct 68 HDL Cholesterol 38 BBK History Checked No verified bt Assessment & Plan - Assessment and Plan (Free Text) Assessment: Patient is a 23 year old female, with no significant past medical history, who presents to the emergency department with right side weakness that started at 12pm while she was in school. Patient was a code stroke in the ED. Patient will be admitted for Stroke/TIA vs Conversion Disorder. Plan: Stroke/TIA vs Conversion Disorder - Given patient's age, exam, imaging results, and overall presentation consider underlying Conversion Disorder - ASA 81mg PO daily - Plavix as per neuro recs - Lipitor 20mg PO daily - NIHSS 0 - Neuro is on consult (Dr. Ricardo) - Urine drug screen - Hgb A1c - Lipid Panel - TSH - Vitamin B12 - Passed nursing swallow screen - Regular diet - IVF NS @ 100 cc/hr; mildly dehydrated - neurochecks q4 - CT Head: no acute findings - CT Angio Head/Neck: no acute findings - CXR: no consolidation or infiltrates DVT ppx: scd Diet: Regular Dispo: Monitor patient on telemetry. Further recs from neuro. Case was discussed and reviewed with Attending Physician, Dr. Zimmerman. <Beckie Zimmerman - Last Filed: 11/03/18 19:22> Results - Vital Signs Recent Vital Signs: Last Vital Signs Temp 97.5 F L 11/03/18 04:20 Pulse 83 11/03/18 04:20 Resp 18 11/03/18 04:20 BP 109/68 11/03/18 04:20 Pulse Ox 98 11/03/18 04:20 - Labs Result Diagrams: 11/03/18 02:30 11/03/18 02:30 Labs: Laboratory Results - last 24 hr 11/03/18 11/03/18 11/03/18 01:55 02:30 02:30 WBC 6.5 RBC 3.68 Hgb 11.4 L Hct 34.5 L MCV 93.8 MCH 31.0 MCHC 33.0 RDW 13.6 Plt Count 220 MPV 10.6 Neut % (Auto) 52.3 Lymph % (Auto) 37.7 H Cloud % (Auto) 7.4 H Eos % (Auto) 2.1 Baso % (Auto) 0.5 Lymph # (Auto) 2.5 Cloud # (Auto) 0.5 Eos # (Auto) 0.1 Baso # (Auto) 0.03 Absolute Neuts (auto) 3.42 PT 11.9 INR 1.07 APTT 34.4 Sodium Potassium Chloride Carbon Dioxide Anion Gap BUN Creatinine Est GFR ( Amer) Est GFR (Non-Af Amer) POC Glucose (mg/dL) 123 H Random Glucose Hemoglobin A1c Calcium Total Bilirubin AST ALT Alkaline Phosphatase Troponin I Total Protein Albumin Globulin Albumin/Globulin Ratio Triglycerides Cholesterol LDL Cholesterol Direct HDL Cholesterol Vitamin B12 TSH 3rd Generation Blood Type Blood Type Confirm Antibody Screen BBK History Checked 11/03/18 11/03/18 11/03/18 02:30 02:30 02:30 WBC RBC Hgb Hct MCV MCH MCHC RDW Plt Count MPV Neut % (Auto) Lymph % (Auto) Cloud % (Auto) Eos % (Auto) Baso % (Auto) Lymph # (Auto) Cloud # (Auto) Eos # (Auto) Baso # (Auto) Absolute Neuts (auto) PT INR APTT Sodium 137 Potassium 3.7 Chloride 106 Carbon Dioxide 27 Anion Gap 8 L BUN 17 Creatinine 0.7 Est GFR ( Amer) > 60 Est GFR (Non-Af Amer) > 60 POC Glucose (mg/dL) Random Glucose 106 Hemoglobin A1c 5.3 Calcium 9.0 Total Bilirubin 0.3 AST 21 ALT 18 Alkaline Phosphatase 57 Troponin I < 0.01 Total Protein 6.0 Albumin 3.5 Globulin 2.5 Albumin/Globulin Ratio 1.4 Triglycerides 81 Cholesterol 127 L LDL Cholesterol Direct 68 HDL Cholesterol 38 Vitamin B12 TSH 3rd Generation Blood Type O POSITIVE Blood Type Confirm Antibody Screen Negative BBK History Checked No verified bt 11/03/18 11/03/18 11/03/18 02:30 02:30 02:55 WBC RBC Hgb Hct MCV MCH MCHC RDW Plt Count MPV Neut % (Auto) Lymph % (Auto) Cloud % (Auto) Eos % (Auto) Baso % (Auto) Lymph # (Auto) Cloud # (Auto) Eos # (Auto) Baso # (Auto) Absolute Neuts (auto) PT INR APTT Sodium Potassium Chloride Carbon Dioxide Anion Gap BUN Creatinine Est GFR ( Amer) Est GFR (Non-Af Amer) POC Glucose (mg/dL) Random Glucose Hemoglobin A1c Calcium Total Bilirubin AST ALT Alkaline Phosphatase Troponin I Total Protein Albumin Globulin Albumin/Globulin Ratio Triglycerides Cholesterol LDL Cholesterol Direct HDL Cholesterol Vitamin B12 396 TSH 3rd Generation 2.21 Blood Type Blood Type Confirm O POSITIVE Antibody Screen BBK History Checked Attending/Attestation - Attestation I have personally seen and examined this patient.: Yes I have fully participated in the care of the patient.: Yes I have reviewed all pertinent clinical information: Yes Notes (Text): 11/03/18 19:21 seen and examined. A&P discussed with resident. Exam benign
[2018-11-03 05:11] VITALS: BP 109/68; PULSE 83; TEMP 97.5; O2SAT 98
--- NOTE | 2018-11-03 06:13 | CP.PCM.DIS ---
<SatnamMario - Last Filed: 11/03/18 06:09> Provider - Provider Date of Admission: 11/03/18 03:12 Attending physician: Alexander Wolf MD Consults: 11/03/18 01:53 Stroke Team Consult Stat Comment: Consulting Provider: Neurohospitalist Consulting Physician: NEUROHOSP Neurohospitalist for Consult: Rajat Krishnamurthy Neurohospitalist for Consult: Shelly Ricardo Reason for Consult: code stroke 11/03/18 03:55 Physician Consult Routine Comment: Consulting Provider: Shelly Ricardo Consulting Physician: Shelly Ricardo Reason for Consult: code stroke Time Spent in preparation of Discharge (in minutes): 35 Hospital Course - Lab Results Lab Results: Most Recent Lab Values WBC 6.5 10^3/uL (4.5-11.0) 11/03/18 02:30 RBC 3.68 10^6/uL (3.5-6.1) 11/03/18 02:30 Hgb 11.4 g/dL (12.0-16.0) L 11/03/18 02:30 Hct 34.5 % (36.0-48.0) L 11/03/18 02:30 MCV 93.8 fl (80.0-105.0) 11/03/18 02:30 MCH 31.0 pg (25.0-35.0) 11/03/18 02:30 MCHC 33.0 g/dl (31.0-37.0) 11/03/18 02:30 RDW 13.6 % (11.5-14.5) 11/03/18 02:30 Plt Count 220 10^3/uL (120.0-450.0) 11/03/18 02:30 MPV 10.6 fl (7.0-11.0) 11/03/18 02:30 Neut % (Auto) 52.3 % (50.0-68.0) 11/03/18 02:30 Lymph % (Auto) 37.7 % (22.0-35.0) H 11/03/18 02:30 [place] % (Auto) 7.4 % (1.0-6.0) H 11/03/18 02:30 Eos % (Auto) 2.1 % (1.5-5.0) 11/03/18 02:30 Baso % (Auto) 0.5 % (0.0-3.0) 11/03/18 02:30 Lymph # (Auto) 2.5 (1.2-3.4) 11/03/18 02:30 [place] # (Auto) 0.5 (0.1-0.6) 11/03/18 02:30 Eos # (Auto) 0.1 (0.0-0.7) 11/03/18 02:30 Baso # (Auto) 0.03 K/mm3 (0.0-2.0) 11/03/18 02:30 Absolute Neuts (auto) 3.42 (1.4-6.5) 11/03/18 02:30 PT 11.9 SECONDS (9.4-12.5) 11/03/18 02:30 INR 1.07 11/03/18 02:30 APTT 34.4 Seconds (26.9-38.3) 11/03/18 02:30 Sodium 137 mmol/L (132-148) 11/03/18 02:30 Potassium 3.7 mmol/L (3.6-5.0) 11/03/18 02:30 Chloride 106 mmol/L (98-107) 11/03/18 02:30 Carbon Dioxide 27 mmol/L (21-33) 11/03/18 02:30 Anion Gap 8 (10-20) L 11/03/18 02:30 BUN 17 mg/dL (7-21) 11/03/18 02:30 Creatinine 0.7 mg/dl (0.7-1.2) 11/03/18 02:30 Est GFR ( Amer) > 60 11/03/18 02:30 Est GFR (Non-Af Amer) > 60 11/03/18 02:30 POC Glucose (mg/dL) 123 mg/dL (65-110) H 11/03/18 01:55 Random Glucose 106 mg/dL (70-110) 11/03/18 02:30 Calcium 9.0 mg/dL (8.4-10.5) 11/03/18 02:30 Total Bilirubin 0.3 mg/dL (0.2-1.3) 11/03/18 02:30 AST 21 U/L (14-36) 11/03/18 02:30 ALT 18 U/L (7-56) 11/03/18 02:30 Alkaline Phosphatase 57 U/L (38-126) 11/03/18 02:30 Troponin I < 0.01 ng/mL 11/03/18 02:30 Total Protein 6.0 g/dL (5.8-8.3) 11/03/18 02:30 Albumin 3.5 g/dL (3.0-4.8) 11/03/18 02:30 Globulin 2.5 gm/dL 11/03/18 02:30 Albumin/Globulin Ratio 1.4 (1.1-1.8) 11/03/18 02:30 Triglycerides 81 mg/dL (35-160) 11/03/18 02:30 Cholesterol 127 mg/dL (130-200) L 11/03/18 02:30 LDL Cholesterol Direct 68 mg/dL (0-129) 11/03/18 02:30 HDL Cholesterol 38 mg/dL (29-60) 11/03/18 02:30 TSH 3rd Generation 2.21 mIU/mL (0.46-4.68) 11/03/18 02:30 Blood Type O POSITIVE 11/03/18 02:30 Blood Type Confirm O POSITIVE 11/03/18 02:55 Antibody Screen Negative 11/03/18 02:30 BBK History Checked No verified bt 11/03/18 02:30 - Hospital Course Hospital Course: Mario Hay, PGY1 Discharge Summary for Dr. Zimmerman Patient is a 23 y/o F with no significant PMHx who presented for Stroke/TIA versus Conversion Disorder. Patient decided to sign out against medical advice after she was moved to telemetry. Please refer to History and Physical for further information. Patient has full capacity and verbalized understanding to signing out against medical advice, including permanent disability and . Discharge Plan - Follow Up Plan Condition: FAIR Disposition: AGAINST MEDICAL ADVICE <Beckie Zimmerman - Last Filed: 11/03/18 19:22> Provider - Provider Date of Admission: 11/03/18 03:12 Attending physician: Alexander Wolf MD Consults: 11/03/18 01:53 Stroke Team Consult Stat Comment: Consulting Provider: Neurohospitalist Consulting Physician: NEUROHOSP Neurohospitalist for Consult: Rajat Krishnamurthy Neurohospitalist for Consult: Shelly Ricardo Reason for Consult: code stroke 11/03/18 03:55 Physician Consult Routine Comment: Consulting Provider: Shelly Ricardo Consulting Physician: Shelly Ricardo Reason for Consult: code stroke Hospital Course - Lab Results Lab Results: Most Recent Lab Values WBC 6.5 10^3/uL (4.5-11.0) 11/03/18 02:30 RBC 3.68 10^6/uL (3.5-6.1) 11/03/18 02:30 Hgb 11.4 g/dL (12.0-16.0) L 11/03/18 02:30 Hct 34.5 % (36.0-48.0) L 11/03/18 02:30 MCV 93.8 fl (80.0-105.0) 11/03/18 02:30 MCH 31.0 pg (25.0-35.0) 11/03/18 02:30 MCHC 33.0 g/dl (31.0-37.0) 11/03/18 02:30 RDW 13.6 % (11.5-14.5) 11/03/18 02:30 Plt Count 220 10^3/uL (120.0-450.0) 11/03/18 02:30 MPV 10.6 fl (7.0-11.0) 11/03/18 02:30 Neut % (Auto) 52.3 % (50.0-68.0) 11/03/18 02:30 Lymph % (Auto) 37.7 % (22.0-35.0) H 11/03/18 02:30 [place] % (Auto) 7.4 % (1.0-6.0) H 11/03/18 02:30 Eos % (Auto) 2.1 % (1.5-5.0) 11/03/18 02:30 Baso % (Auto) 0.5 % (0.0-3.0) 11/03/18 02:30 Lymph # (Auto) 2.5 (1.2-3.4) 11/03/18 02:30 [place] # (Auto) 0.5 (0.1-0.6) 11/03/18 02:30 Eos # (Auto) 0.1 (0.0-0.7) 11/03/18 02:30 Baso # (Auto) 0.03 K/mm3 (0.0-2.0) 11/03/18 02:30 Absolute Neuts (auto) 3.42 (1.4-6.5) 11/03/18 02:30 PT 11.9 SECONDS (9.4-12.5) 11/03/18 02:30 INR 1.07 11/03/18 02:30 APTT 34.4 Seconds (26.9-38.3) 11/03/18 02:30 Sodium 137 mmol/L (132-148) 11/03/18 02:30 Potassium 3.7 mmol/L (3.6-5.0) 11/03/18 02:30 Chloride 106 mmol/L (98-107) 11/03/18 02:30 Carbon Dioxide 27 mmol/L (21-33) 11/03/18 02:30 Anion Gap 8 (10-20) L 11/03/18 02:30 BUN 17 mg/dL (7-21) 11/03/18 02:30 Creatinine 0.7 mg/dl (0.7-1.2) 11/03/18 02:30 Est GFR ( Amer) > 60 11/03/18 02:30 Est GFR (Non-Af Amer) > 60 11/03/18 02:30 POC Glucose (mg/dL) 123 mg/dL (65-110) H 11/03/18 01:55 Random Glucose 106 mg/dL (70-110) 11/03/18 02:30 Hemoglobin A1c 5.3 % (4.2-6.5) 11/03/18 02:30 Calcium 9.0 mg/dL (8.4-10.5) 11/03/18 02:30 Total Bilirubin 0.3 mg/dL (0.2-1.3) 11/03/18 02:30 AST 21 U/L (14-36) 11/03/18 02:30 ALT 18 U/L (7-56) 11/03/18 02:30 Alkaline Phosphatase 57 U/L (38-126) 11/03/18 02:30 Troponin I < 0.01 ng/mL 11/03/18 02:30 Total Protein 6.0 g/dL (5.8-8.3) 11/03/18 02:30 Albumin 3.5 g/dL (3.0-4.8) 11/03/18 02:30 Globulin 2.5 gm/dL 11/03/18 02:30 Albumin/Globulin Ratio 1.4 (1.1-1.8) 11/03/18 02:30 Triglycerides 81 mg/dL (35-160) 11/03/18 02:30 Cholesterol 127 mg/dL (130-200) L 11/03/18 02:30 LDL Cholesterol Direct 68 mg/dL (0-129) 11/03/18 02:30 HDL Cholesterol 38 mg/dL (29-60) 11/03/18 02:30 Vitamin B12 396 pg/mL (239-931) 11/03/18 02:30 TSH 3rd Generation 2.21 mIU/mL (0.46-4.68) 11/03/18 02:30 Blood Type O POSITIVE 11/03/18 02:30 Blood Type Confirm O POSITIVE 11/03/18 02:55 Antibody Screen Negative 11/03/18 02:30 BBK History Checked No verified bt 11/03/18 02:30 Attending/Attestation - Attestation I have personally seen and examined this patient.: No I have fully participated in the care of the patient.: No I have reviewed all pertinent clinical information, including history, physical exam and plan: No Notes (Text): 11/03/18 19:22 Not seen at time of signing AMA
--- NOTE | 2018-11-03 08:20 | CT ---
Date of service: 11/03/2018 PROCEDURE: CT HEAD WITHOUT CONTRAST. HISTORY: Code Stroke COMPARISON: None available. TECHNIQUE: Axial computed tomography images were obtained through the head/brain without intravenous contrast. Radiation dose: Total exam DLP = 956.37 mGy-cm. This CT exam was performed using one or more of the following dose reduction techniques: Automated exposure control, adjustment of the mA and/or kV according to patient size, and/or use of iterative reconstruction technique. FINDINGS: HEMORRHAGE: No intracranial hemorrhage. BRAIN: No mass effect or edema. No atrophy or chronic microvascular ischemic changes. VENTRICLES: Unremarkable. No hydrocephalus. CALVARIUM: Unremarkable. PARANASAL SINUSES: Unremarkable as visualized. No significant inflammatory changes. MASTOID AIR CELLS: Unremarkable as visualized. No inflammatory changes. OTHER FINDINGS: The report concurs with the preliminary [facility] report IMPRESSION: Normal CT of the Head.
--- NOTE | 2018-11-03 08:25 | CT ---
Date of service: 11/03/2018 PROCEDURE: CT Angiography of the neck with contrast HISTORY: R sided numbness/weakness COMPARISON: None. TECHNIQUE: Contiguous axial images of the neck were obtained from the level of the skull-base to the superior mediastinum in the arteriographic phase of enhancement. Coronal and sagittal reformats or also generated. IV contrast dose: 100 cc of Visipaque Radiation dose: Total exam DLP = 501.6 mGy-cm. This CT exam was performed using one or more of the following dose reduction techniques: Automated exposure control, adjustment of the mA and/or kV according to patient size, and/or use of iterative reconstruction technique. FINDINGS: RIGHT CAROTID ARTERIES: Common Carotid Artery: Normal. Carotid Bifurcation: Normal. Internal Carotid Artery:Normal. External Carotid Artery (proximal branches): Normal. LEFT CAROTID ARTERIES: Common Carotid Artery: Normal. Carotid Bifurcation: Normal. Internal Carotid Artery:Normal. External Carotid Artery (proximal branches): Normal. VERTEBRAL ARTERIES: Right Vertebral Artery: Normal. Left Vertebral Artery: Normal. OTHER FINDINGS: no aortic atherosclerotic calcification or mural plaque present. IMPRESSION: Normal CT Angiography of the neck. CT Angiography of the Brain. HISTORY: R sided numbness/weakness COMPARISON: None available. TECHNIQUE: CT angiography of the intracranial arteries was performed. Coronal and sagittal maximum intensity projection reformated images were generated. Radiation dose: Total exam DLP = 501.6 mGy-cm. This CT exam was performed using one or more of the following dose reduction techniques: Automated exposure control, adjustment of the mA and/or kV according to patient size, and/or use of iterative reconstruction technique. FINDINGS: INTERNAL CEREBRAL ARTERIES: Unremarkable. The skull base, petrous, cavernous and supraclinoid segments are bilaterally widely patent. ANTERIOR CEREBRAL ARTERIES: Unremarkable. A1 and A2 segments are widely patent. Smaller distal branches unremarkable, as visualized. MIDDLE CEREBRAL ARTERIES: Unremarkable. M1 and M2 segments are widely patent. Perisylvian branches grossly symmetric. POSTERIOR CIRCULATION: Basilar Artery: Unremarkable. Distal Vertebral Arteries: Unremarkable. Posterior Cerebral Arteries: Unremarkable. Posterior Inferior Cerebellar Arteries: Unremarkable. ANEURYSM/ VASCULAR MALFORMATIONS: None. OTHER FINDINGS: None. IMPRESSION: Unremarkable CT Angiography of the Brain.
--- NOTE | 2018-11-03 09:23 | RAD ---
Date of service: 11/03/2018 PROCEDURE: CHEST RADIOGRAPH, 1 VIEW HISTORY: Code Stroke COMPARISON: None available. FINDINGS: LUNGS: Clear. PLEURA: No pneumothorax or pleural fluid seen. CARDIOVASCULAR: No aortic atherosclerotic calcification present. Normal. OSSEOUS STRUCTURES: No significant abnormalities. VISUALIZED UPPER ABDOMEN: Normal. OTHER FINDINGS: None. IMPRESSION: No active disease.
--- NOTE | 2018-11-03 18:37 | CARD ---
APPROVED REPORT Date of service: 11/03/2018 EKG Measurement Heart [id number] <Conclusion> Normal sinus rhythm Normal ECG
== END 2018-11-03 05:10 | disposition left against medical advice (07) ==
LOC: ED 01:11 → ERH 03:12 → INTOOBSV 03:12 → ERH 03:29 → 2RNO 04:15
PROVIDERS: ADMIT Internal Medicine; ATTEND Internal Medicine
DX: F44.9 Dissociative and conversion disorder, unspecified (principal); R20.2 Paresthesia of skin; F17.210 Nicotine dependence, cigarettes, uncomplicated
CPT/HCPCS: 70450; 70496; 70498; 71045; 80053; 80061; 81025; 82607; 82948; 83036; 84443; 84484; 85025; 85610; 85730; 86850; 86900; 93005; 99285; G0378; J7030; Q9967

== ENCOUNTER 2019-01-09 01:12 | Emergency (ER) | payer SELFPAY ==
[2019-01-09 01:12] VITALS: BMI 26.4
--- NOTE | 2019-01-09 01:20 | ED PDOC ---
Arrival/HPI <Justin Vasquez - Last Filed: 01/09/19 03:54> - General Historian: Patient - History of Present Illness Narrative History of Present Illness (Text): 01/09/19 01:18 Patient is a 23 yo female with a history of gastritis and uterine fibroids who presents with abdominal pain. Patient states the pain has been constant and progressing for the last 2.5 weeks. She describes the pain as severe cramping located in her lower abdomen. She denies nausea. She said she only vomited once on Tuesday. Her appetite is normal and eating does not affect the pain. She denies constipation or diarrhea; last BM earlier today. She denies fevers/chills. Denies dysuria, hematuria, vaginal discharge. She has been taking Tylenol without relief of symptoms. Lying down flat makes the pain worse. Her LMP was 5/3-5/10. She states she has regular, monthly periods. Time/Duration: > week Symptom Onset: Gradual Symptom Course: Worsening Quality: Cramping Severity Level: 10 Activities at Onset: Rest <Nancy Demarco - Last Filed: 01/09/19 04:03> - General Chief Complaint: Abdominal Pain Time Seen by Provider: 01/09/19 01:13 Past Medical History - Provider Review Nursing Documentation Reviewed: Yes Primary Care Provider: Barbie Urias - Infectious Disease Hx of Infectious Diseases: None - Tetanus Immunization Tetanus Immunization: Unknown - Reproductive Menopause: No - Cardiac Hx Cardiac Disorders: No - Psychiatric Hx Substance Use: No <Nancy Demarco - Last Filed: 01/09/19 04:03> Family/Social History - Physician Review Nursing Documentation Reviewed: Yes Family/Social History: Unknown Family HX Smoking Status: Current Some Days Smoker Hx Alcohol Use: No Hx Substance Use: No <Nancy Demarco - Last Filed: 01/09/19 04:03> Allergies/Home Meds <Justin Vasquez - Last Filed: 01/09/19 03:54> <Nancy Demarco - Last Filed: 01/09/19 04:03> Allergies/Adverse Reactions: Allergies gabapentin Allergy (Verified 01/09/19 01:17) ANAPHYLAXIS ketorolac [From Toradol] Allergy (Verified 01/09/19 01:53) URTICARIA metoclopramide [From Reglan] Allergy (Verified 01/09/19 01:17) ITCHING NSAIDS (Non-Steroidal Anti-Inflamma Allergy (Verified 01/09/19 01:18) URTICARIA peanut Allergy (Verified 01/09/19 01:17) URTICARIA Home Medications: Home Meds Medication Instructions Recorded Confirmed No Known Home Med 11/03/18 11/03/18 Review of Systems - Review of Systems Constitutional: absent: Weight Change, Fevers Eyes: Normal ENT: Normal Respiratory: absent: SOB, Cough Cardiovascular: absent: Chest Pain, Palpitations Gastrointestinal: Abdominal Pain, Nausea, Vomiting. absent: Stool Changes, Constipation, Diarrhea, Appetite Changes, Anorexia Genitourinary Female: absent: Dysuria, Frequency, Hematuria, Vaginal Discharge Musculoskeletal: absent: Arthralgias Skin: absent: Rash, Pruritis, Skin Lesions Neurological: absent: Headache, Dizziness, Focal Weakness Endocrine: absent: Diaphoresis Hemo/Lymphatic: absent: Adenopathy <Nancy Demarco - Last Filed: 01/09/19 04:03> Physical Exam Vital Signs Temp Pulse Resp BP Pulse Ox 01/09/19 01:27 97.4 F L 76 16 116/70 100 <Justin Vasquez - Last Filed: 01/09/19 03:54> Vital Signs Reviewed: Yes Temperature: Afebrile Blood Pressure: Normal Pulse: Regular Respiratory Rate: Normal Appearance: Positive for: Non-Toxic, Comfortable Pain Distress: Mild Mental Status: Positive for: Alert and Oriented X 3 - Systems Exam Head: Present: Atraumatic, Normocephalic Pupils: Present: PERRL Extroacular Muscles: Present: EOMI Conjunctiva: Present: Normal Mouth: Present: Moist Mucous Membranes Respiratory/Chest: Present: Clear to Auscultation, Good Air Exchange Cardiovascular: Present: Regular Rate and Rhythm, Normal S1, S2 Abdomen: Present: Tenderness (diffuse), Normal Bowel Sounds, Guarding, Other (Angeles's sign negative). No: Distention, Rebound, Rovsing's Sign Present, Hernias Back: Present: Normal Inspection Neurological: Present: GCS=15, CN II-XII Intact, Speech Normal Skin: Present: Warm, Dry, Normal Color Psychiatric: Present: Alert, Oriented x 3, Normal Insight, Normal Concentration <Nancy Demarco - Last Filed: 01/09/19 04:03> Medical Decision Making - Lab Interpretations Lab Results: Total Bilirubin 0.3 mg/dL (0.2-1.3) 01/09/19 01:34 AST 22 U/L (14-36) 01/09/19 01:34 ALT 20 U/L (7-56) 01/09/19 01:34 Alkaline Phosphatase 58 U/L (38-126) 01/09/19 01:34 Total Protein 6.6 g/dL (5.8-8.3) 01/09/19 01:34 Albumin 3.8 g/dL (3.0-4.8) 01/09/19 01:34 Globulin 2.8 gm/dL 01/09/19 01:34 Albumin/Globulin Ratio 1.4 (1.1-1.8) 01/09/19 01:34 Urine Color Yellow (YELLOW) 01/09/19 01:34 Urine Appearance Cloudy (CLEAR) 01/09/19 01:34 Urine pH 8.0 (4.7-8.0) 01/09/19 01:34 Ur Specific [place] 1.015 (1.005-1.035) 01/09/19 01:34 Urine Protein Negative mg/dL (<30 mg/dL) 01/09/19 01:34 Urine Glucose (UA) Negative mg/dL (NEGATIVE) 01/09/19 01:34 Urine Ketones Negative mg/dL (NEGATIVE) 01/09/19 01:34 Urine Blood Negative (NEGATIVE) 01/09/19 01:34 Urine Nitrate Negative (NEGATIVE) 01/09/19 01:34 Urine Bilirubin Negative (NEGATIVE) 01/09/19 01:34 Urine Urobilinogen 0.2 E.U./dL (<1 E.U./dL) 01/09/19 01:34 Ur Leukocyte Esterase Negative Ck/uL (NEGATIVE) 01/09/19 01:34 Urine HCG, Qual Negative (NEGATIVE) 01/09/19 01:34 Urine HCG, Qual Negative (NEGATIVE) 01/09/19 01:34 - RAD Interpretation Narrative RAD Interpretations (Text): 01/09/19 03:55 CT SCAN OF THE ABDOMEN AND PELVIS WITH CONTRAST. CLINICAL HISTORY: Abdominal pain. TECHNIQUE: Multiple axial and coronal CT images were obtained through the abdomen and pelvis after administration of intravenous contrast material. COMPARISON: 06/27/2018. COMMENTS: 1.8 cm posterior fundal intramural fibroid. Uncomplicated colonic diverticulosis. Fluid-filled distended stomach. Gastroparesis. Bilateral changes of pelvic congestion syndrome. The liver is of uniform attenuation without mass or defect. There is no intra or extrahepatic biliary ductal dilatation. The spleen is normal. The gallbladder is within normal limits. The pancreas is of normal contour and attenuation characteristics. There is no evidence of adrenal mass. Both kidneys demonstrate prompt and equal nephrograms. The kidneys are normal in size, shape and configuration. There is no evidence of renal or ureteral mass. No renal or ureteral calculi are identified. There is no hydroureter or hydronephrosis. No evidence for appendicitis. There is no bowel wall thickening. No evidence for small or large bowel obstruction. There is no evidence of abdominal ascites or lymphadenopathy. There is no evidence of intrinsic or extrinsic bladder mass. There is no pelvic ascites or lymphadenopathy. Images of the lung bases show no evidence of pleural or parenchymal mass. There are no pleural effusions. The bony structures are free of lytic or blastic lesions. IMPRESSION: 1.8 cm posterior fundal intramural fibroid. Uncomplicated colonic diverticulosis. Fluid-filled distended stomach. Gastroparesis. Changes of pelvic congestion syndrome. Radiology Orders: 01/09/19 01:31 ABD & PELVIS IV CONTRAST ONLY [CT] Stat Welder Apprentice Arc: Radiologist - Medication Orders Current Medication Orders: Discontinued Medications Dicyclomine HCl (Bentyl) 10 mg PO STAT STA Stop: 01/09/19 03:18 Last Admin: 01/09/19 03:37 Dose: Not Given Non-Admin Reason: Patient Refused Oxycodone/Acetaminophen (Percocet 5/325 Mg Tab) 1 tab PO STAT STA Stop: 01/09/19 01:42 Last Admin: 01/09/19 01:51 Dose: 1 tab MAR Pain Assessment Document 01/09/19 01:51 SS (Rec: 01/09/19 01:52 SS [id number]) Pain Reassessment Is this a pain reassessment? No Sleep Is patient sleeping during reassessment? No Presence of Pain Presence of Pain Yes <Justin Vasquez - Last Filed: 01/09/19 03:54> ED Course and Treatment: 01/09/19 02:49 Re-evaluated patient after CT. She is sleeping comfortably. She denies feeling constipated or nauseated. Patient offered Bentyl and refused. 01/09/19 03:58 Patient re-examined. She is sleeping comfortably. Explained CT findings. - Lab Interpretations I have reviewed the lab results: Yes - RAD Interpretation Radiology Orders: CT A/P - Medication Orders Current Medication Orders: 01/09/19 01:41 Percocet 5/325 mg PO 01/09/19 03:17 Bentyl 10 mg PO <Nancy Demarco - Last Filed: 01/09/19 04:03> Disposition/Present on Arrival <Justin Vasquez - Last Filed: 01/09/19 03:54> - Present on Arrival Any Indicators Present on Arrival: Yes History of DVT/PE: No History of Uncontrolled Diabetes: No Urinary Catheter: No History Surgical Site Infection Following: None - Disposition Have Diagnosis and Disposition been Completed?: Yes Disposition Time: 03:59 Patient Plan: Discharge <Nancy Demarco - Last Filed: 01/09/19 04:03> - Disposition Diagnosis: Gastroparesis, Pelvic congestion Condition: STABLE Discharge Instructions (ExitCare): Gastroparesis (Delayed Gastric Emptying) (DC) Additional Instructions: Follow-up with your primary care provider and audio director within 1 week of discharge. Establish care with medical education manager listed below. Referrals: Barbie Urias MD [Primary Care Provider] - Follow up with primary Reyes Alba MD [Staff Provider] - Follow up with primary Forms: [employer] (Lao)
[2019-01-09 01:32] VITALS: TEMP 97.4; O2SAT 100
[2019-01-09] MEDS ORDERED: Oxycodone/Acetaminophen 5/325 mg Tab PO STA (01:41)
[2019-01-09] MEDS ORDERED: Oxycodone/Acetaminophen 5/325 mg Tab ONE (01:55)
[2019-01-09 01:57] LABS: URINE APPEARANCE CLOUDY (CLEAR); URINE BILIRUBIN NEGATIVE (NEGATIVE); URINE BLOOD NEGATIVE (NEGATIVE); URINE COLOR YELLOW (YELLOW); URINE GLUCOSE (UA) NEGATIVE (NEGATIVE); URINE LEUKOCYTE ESTERASE NEGATIVE Leu/uL (NEGATIVE); URINE PROTEIN NEGATIVE mg/dL (<30 mg/dL); URINE UROBILINOGEN 0.2 E.U./dL (<1 E.U./dL)
[2019-01-09 01:58] LABS: BASO # 0.05 K/mm3 (0.0-2.0); BASO % 0.9 % (0.0-3.0); EOS # 0.1 (0.0-0.7); EOS % 2.2 % (1.5-5.0); HEMOGLOBIN 12.2 g/dL (12.0-16.0); LYMPH # 2.7 (1.2-3.4); LYMPH % 49.6 % (22.0-35.0); MEAN CELL VOLUME 93.7 fl (80.0-105.0); MEAN CORPUSCULAR HGB CONC 33.1 g/dl (31.0-37.0); MEAN PLATELET VOLUME 10.7 fl (7.0-11.0); MONO # 0.4 (0.1-0.6); RBC 3.94 10^6/uL (3.5-6.1); RED CELL DISTRIBUTION WIDTH 13.2 % (11.5-14.5); WHITE BLOOD COUNT 5.4 10^3/uL (4.5-11.0)
[2019-01-09 02:01] LABS: HCG,QUALITATIVE URINE NEGATIVE (NEGATIVE)
[2019-01-09 02:04] LABS: ALB/GLOB RATIO 1.4 (1.1-1.8); ALBUMIN 3.8 g/dL (3.0-4.8); ALT/SGPT 20 U/L (7-56); AST/SGOT 22 U/L (14-36); BLOOD UREA NITROGEN 15 mg/dL (7-21); CALCIUM 8.9 mg/dL (8.4-10.5); GFR NON-AFRICAN AMERICAN > 60
[2019-01-09] MEDS ORDERED: Iohexol 350 MG/100 ML VIAL ONE (02:12)
[2019-01-09 04:10] VITALS: BP 115/63; PULSE 75; RESP 18
--- NOTE | 2019-01-09 09:20 | CT ---
Date of service: 01/09/2019 PROCEDURE: CT Abdomen and Pelvis with contrast HISTORY: Abdominal pain COMPARISON: 10/09/2018. TECHNIQUE: CT scan of the abdomen and pelvis was performed after administration of intravenous contrast. Oral contrast was not administered. Coronal and sagittal reformatted images were obtained. Contrast dose: Radiation dose: Total exam DLP = 803.17 mGy-cm. This CT exam was performed using one or more of the following dose reduction techniques: Automated exposure control, adjustment of the mA and/or kV according to patient size, and/or use of iterative reconstruction technique. FINDINGS: LOWER THORAX: The visualized lungs are clear. LIVER: Normal in size with homogeneous enhancement. No gross lesion or ductal dilatation. GALLBLADDER AND BILE DUCTS: The gallbladder is contracted. PANCREAS: Normal in size with homogeneous enhancement. No gross lesion or ductal dilatation. SPLEEN: Normal in size and appearance. ADRENALS: No discrete nodule. KIDNEYS AND URETERS: Normal in size with homogeneous enhancement. No hydronephrosis. No solid mass. VASCULATURE: No aortic aneurysm. There are no aortic atherosclerotic calcifications or mural plaque present. BOWEL: Evaluation of the bowel is limited in the absence of oral contrast. The stomach is filled with fluid and distended there fluid in the duodenum. The proximal small bowel loops are normal in caliber. There are fluid-filled mildly prominent mid and distal small bowel loops. There is also fluid in the ascending colon. The colon is grossly normal in appearance. No bowel wall thickening or obstruction. APPENDIX: Normal appendix. PERITONEUM: No free fluid. No free air. LYMPH NODES: No enlarged lymph nodes. BLADDER: Well distended and normal in appearance. REPRODUCTIVE: The uterus is normal in size. BONES: No acute fracture. Within normal limits for the patient's age. OTHER FINDINGS: None. IMPRESSION: Fluid-filled distended stomach fluid in the duodenum and mid and distal small bowel loops could represent nonspecific gastroenteritis in the appropriate clinical setting. Clinical follow-up is advised. A preliminary report was provided by [facility]. The final report is tagged to the PA review folder.
== END 2019-01-09 04:10 | disposition home or self-care (01) ==
LOC: ED 01:12
DX: K31.84 Gastroparesis (principal); N94.89 Other specified conditions associated with female genital organs and menstrual cycle
CPT/HCPCS: 74177; 80053; 81003; 81025; 83735; 84100; 84703; 85025; 99283; Q9967

== ENCOUNTER 2019-01-25 02:52 | Emergency (ER) | payer SELFPAY ==
[2019-01-25 02:52] VITALS: BMI 26.4
[2019-01-25 03:20] VITALS: TEMP 98.6
[2019-01-25] MEDS ORDERED: Sodium Chloride 0.9% 1,000 ML IV STA (03:38)
[2019-01-25] MEDS ORDERED: Morphine 2 mg/ml ISec IVP STA ×2 (03:38→04:57)
--- NOTE | 2019-01-25 03:41 | ED PDOC ---
Arrival/HPI - General Chief Complaint: Abdominal Pain Time Seen by Provider: 01/25/19 03:09 Historian: Patient - History of Present Illness Narrative History of Present Illness (Text): 01/25/19 03:36 Artemio Hagen is a 23 year old female, whose past medical history includes gastritis, uterine fibroid, who presents to the ED complaining of stomach discomfort for the past few days. Patient was initially seen in the ED on for similar complaints and had CT Abdomen/Pelvis performed,results noted. 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 Patient took 2 tablets of Tylenol 500mg with no significant relief. Patient denies any fever, chills, chest pain, shortness of breath, nausea, vomiting, diarrhea, urinary symptoms, back pain, neck pain, headache, dizziness, or any other complaints. Symptom Onset: Gradual Symptom Course: Unchanged Activities at Onset: Light Context: Home Past Medical History - Provider Review Nursing Documentation Reviewed: Yes Primary Care Provider: Shaik Will - Infectious Disease Hx of Infectious Diseases: None - Tetanus Immunization Tetanus Immunization: Unknown - Cardiac Hx Cardiac Disorders: No - Genitourinary/Gynecological Hx Genitourinary Disorders: Yes Other/Comment: uterine fibroid - Psychiatric Hx Substance Use: No - Surgical History Hx Tonsillectomy: Yes Other/Comment: wisdom tooth removal. uterine fibroid - Anesthesia Hx Anesthesia: Yes Hx Anesthesia Reactions: No Hx Malignant Hyperthermia: No Family/Social History - Physician Review Nursing Documentation Reviewed: Yes Family/Social History: Unknown Family HX Smoking Status: Current Some Days Smoker Hx Alcohol Use: No Hx Substance Use: No Allergies/Home Meds Allergies/Adverse Reactions: Allergies gabapentin Allergy (Verified 01/25/19 03:12) ANAPHYLAXIS ketorolac [From Toradol] Allergy (Verified 01/25/19 03:12) URTICARIA metoclopramide [From Reglan] Allergy (Verified 01/25/19 03:12) ITCHING NSAIDS (Non-Steroidal Anti-Inflamma Allergy (Verified 01/25/19 03:12) URTICARIA peanut Allergy (Verified 01/25/19 03:12) URTICARIA Review of Systems - Physician Review All systems were reviewed & negative as marked: Yes - Review of Systems Constitutional: Normal. absent: Fevers Eyes: Normal ENT: Normal Respiratory: Normal. absent: SOB, Cough Cardiovascular: Normal. absent: Chest Pain Gastrointestinal: Abdominal Pain. absent: Diarrhea, Vomiting Genitourinary Female: Normal. absent: Dysuria, Frequency, Hematuria, Urine Output Changes Musculoskeletal: Normal. absent: Back Pain, Neck Pain Skin: Normal. absent: Rash Neurological: Normal. absent: Headache, Dizziness Endocrine: Normal Hemo/Lymphatic: Normal Psychiatric: Normal Physical Exam Vital Signs Reviewed: Yes Vital Signs Temp Pulse Resp BP Pulse Ox 01/25/19 03:09 98.6 F 84 14 102/65 99 Temperature: Afebrile Blood Pressure: Normal Pulse: Regular Respiratory Rate: Normal Appearance: Positive for: Well-Appearing, Non-Toxic, Comfortable Pain Distress: None Mental Status: Positive for: Alert and Oriented X 3 - Systems Exam Head: Present: Atraumatic, Normocephalic Pupils: Present: PERRL Extroacular Muscles: Present: EOMI Conjunctiva: Present: Normal Mouth: Present: Moist Mucous Membranes Neck: Present: Normal Range of Motion Respiratory/Chest: Present: Clear to Auscultation, Good Air Exchange. No: Respiratory Distress, Accessory Muscle Use Cardiovascular: Present: Regular Rate and Rhythm, Normal S1, S2. No: Murmurs Abdomen: Present: Tenderness (mild epigastric tenderness). No: Distention, Peritoneal Signs Back: Present: Normal Inspection Upper Extremity: Present: Normal Inspection. No: Cyanosis, Edema Lower Extremity: Present: Normal Inspection. No: Edema Neurological: Present: GCS=15, CN II-XII Intact, Speech Normal Skin: Present: Warm, Dry, Normal Color. No: Rashes Psychiatric: Present: Alert, Oriented x 3, Normal Insight, Normal Concentration Medical Decision Making ED Course and Treatment: 01/25/19 03:37 Impression: 23 year old female complaining of stomach discomfort for the past few days. Plan: -- Labs, lipase -- IV fluids -- Zofran -- Pepcid -- Morphine -- Reassess and disposition Prior Visits: Notes and results from previous visits were reviewed. On 01/09/2019, pt was seen in the ED for abdominal pain. CT Abdomen and Pelvis showed: fluid-filled distended stomach loops could represent nonspecific gastroenteritis in the appropriate clinical setting. Pt was discharged home, advised to f/u with OBGYN and GI. Progress Notes: - Scribe Statement The provider has reviewed the documentation as recorded by the Shelton Crowe Provider Scribe Attestation: All medical record entries made by the Scribe were at my direction and personally dictated by me. I have reviewed the chart and agree that the record accurately reflects my personal performance of the history, physical exam, medical decision making, and the department course for this patient. I have also personally directed, reviewed, and agree with the discharge instructions and disposition. Disposition/Present on Arrival - Present on Arrival Any Indicators Present on Arrival: No History of DVT/PE: No History of Uncontrolled Diabetes: No Urinary Catheter: No History of Decub. Ulcer: No History Surgical Site Infection Following: None - Disposition Have Diagnosis and Disposition been Completed?: Yes Diagnosis: Gastritis Disposition: HOME/ ROUTINE Disposition Time: 05:26 Patient Plan: Discharge Patient Problems: Current Active Problems Problem Status Onset Gastritis Acute Condition: GOOD Discharge Instructions (ExitCare): Gastritis (DC) Additional Instructions: Take meds as prescribed/maintain proper diet/follow up with the corsets salesperson this week. Prescriptions: Phenobarb/Hyoscy/Atropine/Scop [ Tablet] 16.2 mg PO Q6 PRN #12 tablet PRN Reason: Dyspepsia Referrals: Jesus Banuelos MD [Staff Provider] - Follow up with primary Forms: [place] ([place])
[2019-01-25 03:55] LABS: HEMOGLOBIN 12.2 g/dL (12.0-16.0); MEAN CELL VOLUME 92.3 fl (80.0-105.0); MEAN CORPUSCULAR HEMOGLOBIN 31.2 pg (25.0-35.0); MEAN CORPUSCULAR HGB CONC 33.8 g/dl (31.0-37.0); MEAN PLATELET VOLUME 10.5 fl (7.0-11.0); RBC 3.91 10^6/uL (3.5-6.1); RED CELL DISTRIBUTION WIDTH 13.4 % (11.5-14.5); WHITE BLOOD COUNT 9.3 10^3/uL (4.5-11.0)
[2019-01-25 04:24] LABS: ALB/GLOB RATIO 1.4 (1.1-1.8); ALBUMIN 3.7 g/dL (3.0-4.8); ALT/SGPT 34 U/L (7-56); AST/SGOT 24 U/L (14-36); BLOOD UREA NITROGEN 16 mg/dL (7-21); CALCIUM 8.7 mg/dL (8.4-10.5); GFR NON-AFRICAN AMERICAN > 60; LIPASE 58 U/L (23-300)
[2019-01-25 05:13] LABS: URINE BILIRUBIN NEGATIVE (NEGATIVE); URINE BLOOD NEGATIVE (NEGATIVE); URINE GLUCOSE (UA) NEGATIVE (NEGATIVE); URINE LEUKOCYTE ESTERASE NEGATIVE Leu/uL (NEGATIVE); URINE PROTEIN NEGATIVE mg/dL (<30 mg/dL); URINE UROBILINOGEN 0.2 E.U./dL (<1 E.U./dL)
[2019-01-25 05:15] LABS: URINE APPEARANCE CLEAR (CLEAR); URINE COLOR YELLOW (YELLOW)
[2019-01-25 05:44] VITALS: BP 104/69; PULSE 63; RESP 18; O2SAT 100
== END 2019-01-25 05:44 | disposition home or self-care (01) ==
LOC: ED 02:52
DX: K29.70 Gastritis, unspecified, without bleeding (principal)
CPT/HCPCS: 80053; 81003; 83690; 85027; 96374; 96375; 96376; 99283; J2270; J2405; J7030